=== PATIENT | female | born 2000 | race Caucasian/White ===

== ENCOUNTER 2023-09-17 22:36 | Emergency (ER) | payer OTHER ==
[~2023-09-17] VITALS: Ht 175.3 cm; Wt 136.1 kg
[2023-09-17 22:37] VITALS: BP_SYST 137; PULSE 76; RESP 17; TEMP 98.7; O2SAT 99
[2023-09-17] MEDS ORDERED: FAMO40TA71 PO (23:53)
[2023-09-18 00:01] VITALS: BP_SYST 137; PULSE 76; RESP 18; TEMP 98.9; O2SAT 98
== END 2023-09-17 23:57 | disposition home or self-care (01) ==
LOC: SED 22:36
DX: K21.9 Gastro-esophageal reflux disease without esophagitis (principal); R07.2 Precordial pain; Z79.899 Other long term (current) drug therapy
CPT/HCPCS: 71045; 99283

== ENCOUNTER 2024-05-17 20:30 | Emergency (ER) | payer OTHER ==
[~2024-05-17 20:30] MED LIST: FAMO40TA71 PO
[2024-05-17 20:35] VITALS: BP_SYST 122; PULSE 71; RESP 20; TEMP 98.3; O2SAT 97
[2024-05-17] MEDS ORDERED: CEPH-548 PO (20:46)
[2024-05-17 20:50] VITALS: BP_SYST 125; PULSE 71; RESP 20; TEMP 98.3; O2SAT 97
== END 2024-05-17 20:50 | disposition home or self-care (01) ==
LOC: SED 20:30
DX: L03.213 Periorbital cellulitis (principal); Z79.899 Other long term (current) drug therapy; Z79.2 Long term (current) use of antibiotics
CPT/HCPCS: 99283